=== PATIENT | male | born 1985 | race African-American/Black ===

== ENCOUNTER 2024-06-22 20:07 | Emergency (ER) | payer SELFPAY ==
[~2024-06-22] VITALS: Ht 190.5 cm; Wt 109.0 kg
[~2024-06-22 20:07] MED LIST: MOTRIN
[2024-06-22 20:15] VITALS: O2SAT 99
[2024-06-22 20:43] VITALS: TEMP 36.7; O2SAT 100
[2024-06-22 21:15] LABS: CLARITY URINE CLEAR (CLEAR); COLOR URINE YELLOW (YELLOW); GLUCOSE URINE NEGATIVE (NEGATIVE); KETONES URINE NEGATIVE (NEGATIVE); LEUKOCYTE ESTERASE URINE NEGATIVE (NEGATIVE); NITRITE URINE NEGATIVE (NEGATIVE); OCCULT BLOOD URINE NEGATIVE (NEGATIVE); PROTEIN URINE NEGATIVE (NEGATIVE); SPECIFIC GRAVITY URINE 1.017 (1.005-1.030)
[2024-06-22 22:36] VITALS: BP 133/77; PULSE 87; RESP 16
[2024-06-22] MEDS: KETOROLAC 30MG/ML VIAL IM ONE (22:36)
[2024-06-22 22:50] LABS: HEMATOCRIT 45.9 % (42.0-52.0); HEMOGLOBIN 15.2 g/dL (14.0-18.0); MEAN CORPUSCULAR HEMOGLOBIN 28.3 pg (28.0-32.0); MEAN CORPUSCULAR HGB CONC 33.1 g/dL (31.0-37.0); MEAN CORPUSCULAR VOLUME 85.6 fL (80.0-94.0); PLATELET 330 x1000/uL (130-400); RED BLOOD CELL COUNT 5.36 mill/uL (4.7-6.1); RED CELL DISTRIBUTION WIDTH 12.4 % (11.6-14.6); WHITE BLOOD COUNT 4.8 x1000/uL (4.5-11.0)
[2024-06-22 22:59] LABS: CHLORIDE 101 mEq/L (98-107); POTASSIUM 4.9 mEq/L (3.5-5.1); SODIUM 137 mEq/L (136-145)
[2024-06-22 23:00] LABS: CALCIUM 9.7 mg/dL (8.7-10.4); CARBON DIOXIDE 31 mEq/L (21-32)
[2024-06-22 23:05] LABS: CREATININE 1.2 mg/dL (0.6-1.3); GLUCOSE 95 mg/dL (70-105); UREA NITROGEN BLOOD 9 mg/dL (9-23)
[2024-06-22] MEDS ORDERED: IBUP-2029 MT (23:24)
== END 2024-06-22 23:31 | disposition home or self-care (01) ==
LOC: ER 20:07
DX: R30.9 Painful micturition, unspecified (principal); K57.90 Diverticulosis of intestine, part unspecified, without perforation or abscess without bleeding; K76.9 Liver disease, unspecified
CPT/HCPCS: 99285; 74176; 80048; 81003; 85027; 36415; 96372; J1885